=== PATIENT | female | born 1965 | race African-American/Black ===

== ENCOUNTER 2018-07-21 11:58 | Observation (INO) ==
[2018-07-21 12:27] LABS: Basophils # 0.1 10*3/uL (0.0-0.2); Basophils % 0.5 % (0.0-0.8); Eosinophils # 0.1 10*3/uL (0.0-0.87); Eosinophils % 0.6 % (0.00-10.9); Hematocrit 34.9 VOL% (35.7-47.0); Hemoglobin 11.5 GM/DL (12.0-16.0); Immature Granulocytes % 0.2 %; Immature Granulocytes Absolute 0.02 #; Lymphocytes # 3.1 10*3/uL (1.4-4.0); Lymphocytes % 31.8 % (21.3-54.2); Mean Corpuscular Volume 89.3 FL (87-102); Monocytes % 5.8 % (1.7-12.7); Neutrophils % 61.1 % (38.7-73.9); Platelet Count 290 T/CUMM (130-400); Red Blood Count 3.91 MC/CUMM (3.8-5.5); Red Cell Distribution Width 14.2 % (9.3-17.3); White Blood Count 9.6 T/CUMM (4-12)
[2018-07-21 12:52] LABS: Alanine Aminotransferase 22 U/L (13-56); Albumin 3.3 G/DL (3.4-5.0); Alkaline Phosphatase 117 U/L (45-117); Aspartate Amino Transferase 19 U/L (0-37); Blood Urea Nitrogen 14 MG/DL (7-18); Calcium 9.3 MG/DL (8.5-10.1); Glucose 246 MG/DL (74-106); Osmolality,Calculated 283.7 MOS/KG (273-304); Total Protein 8.3 G/DL (6.4-8.3); Troponin I < 0.015 NG/ML (0.00-0.045)
[2018-07-21 12:59] LABS: Apearance,Urine CLEAR (Clear); Bacteria,Urine Occasional /HPF (Few); Bilirubin,Urine Negative (Negative); Blood, Urine Negative (Negative); Glucose,Urine (UA) >=500 mg/dL (Negative); Ketones,Urine 5 mg/dL (Negative); Mucus,Urine Occasional /LPF (Occasional); Nitrite,Urine Negative (Negative); Protein,Urine Negative; RBC,Urine 3 /HPF (0-4); Squamous Epithelial Cell,Urine Occasional /HPF (0-10); Urine Color Yellow (Yellow); WBC,Urine 3 /HPF (0-6)
[2018-07-21] MEDS ORDERED: cloNIDine 0.1 MG TABLET PO STA (13:00)
[2018-07-21 13:01] LABS: Barbiturates Screen,Urine Negative (Negative); Benzodiazepines Screen,Urine Negative (Negative); Cannabinoid Screen,Urine Positive (Negative); Opiate Screen,Urine Negative (Negative); Phencyclidine Screen,Urine Negative (Negative)
[2018-07-21] MEDS ORDERED: cloNIDine 0.1 MG TABLET ONE (13:01)
[2018-07-21] MEDS ORDERED: SODIUM CHLORIDE 0.9% 1,000 ML IV STA (13:14)
[2018-07-21] MEDS ORDERED: ONDANSETRON 4 MG/2 ML VIAL IV PRN (15:05)
[2018-07-21] MEDS ORDERED: diphenhydrAMINE CAP 25 MG CAPSULE PO PRN (15:05)
[2018-07-21] MEDS ORDERED: guaiFENesin/DM ER 600-30 MG TABLET PO PRN (15:05)
[2018-07-21] MEDS ORDERED: ACETAMINOPHEN 325 MG TABLET PO PRN (15:05)
[2018-07-21] MEDS ORDERED: hydrALAZINE 20 MG/1 ML VIAL IV PRN (15:07)
[2018-07-21] MEDS ORDERED: DEXTROSE 50% 25 GM/50 ML VIAL IV PRN ×2 (15:17→19:49)
[2018-07-21] MEDS ORDERED: GLUCAGON 1 MG VIAL IM PRN ×2 (15:17→19:49)
[2018-07-21] MEDS ORDERED: MAGNESIUM SULF RIDER 4 GM in PREMIX 1 EACH IV PRN (15:22)
[2018-07-21] MEDS ORDERED: POTASSIUM CHLORIDE RIDER 10 MEQ in PREMIX 1 EACH IV PRN (15:22)
[2018-07-21] MEDS ORDERED: MAGNESIUM SULF RIDER 2 GM in PREMIX 1 EACH IV PRN (15:22)
[2018-07-21 16:32] LABS: Risk Ratio 5.33; Thyroid Stimulating Hormone 0.794 uIU/ml (0.358-3.74); VLDL CHOLESTEROL 20.8 MG/DL
[2018-07-21] MEDS ORDERED: DEXTROSE 50% 25 GM/50 ML SYRINGE IV PRN (20:07)
[2018-07-21] MEDS: INSULIN REGULAR 100 UNIT/ML SUBCUT SCH (22:56)
[2018-07-21] MEDS: LISINOPRIL 20 MG TABLET PO SCH (22:56)
[2018-07-21] MEDS: DOCUSATE SODIUM 100 MG CAPSULE PO SCH (22:57)
[2018-07-21] MEDS: CARVEDILOL 6.25 MG TABLET PO SCH (22:57)
[2018-07-21] MEDS: GABAPENTIN 100 MG CAPSULE PO SCH (22:57)
[2018-07-21] MEDS: HEPARIN 5,000 UNIT/1 ML VIAL SUBCUT SCH (22:58)
[2018-07-22] MEDS: SODIUM CHLOR 0.9% KCL 20 MEQ 20 MEQ/1,000 ML BAG IV SCH ×2 (01:25→16:45)
[2018-07-22 05:45] LABS: Basophils % 0.5 % (0.0-0.8); Eosinophils # 0.1 10*3/uL (0.0-0.87); Hematocrit 33.7 VOL% (35.7-47.0); Hemoglobin 10.9 GM/DL (12.0-16.0); Immature Granulocytes % 0.4 %; Immature Granulocytes Absolute 0.03 #; Lymphocytes # 3.2 10*3/uL (1.4-4.0); Mean Corpuscular HGB Conc 32.3 GM/DL (32-36); Mean Corpuscular Volume 89.4 FL (87-102); Mean Platelet Volume 10.2 FL (9.6-12.0); Monocytes % 6.5 % (1.7-12.7); Neutrophils % 52.6 % (38.7-73.9); Platelet Count 275 T/CUMM (130-400); Red Blood Count 3.77 MC/CUMM (3.8-5.5); Red Cell Distribution Width 14.2 % (9.3-17.3); White Blood Count 8.2 T/CUMM (4-12)
[2018-07-22 06:02] LABS: Albumin 2.8 G/DL (3.4-5.0); Bilirubin,Total 0.8 MG/DL (0.2-1.0); Calcium 9.1 MG/DL (8.5-10.1); Total Protein 7.4 G/DL (6.4-8.3)
[2018-07-22] MEDS ORDERED: ATORVASTATIN 40 MG TABLET PO SCH (09:00)
[2018-07-22] MEDS ORDERED: PANTOPRAZOLE 40 MG TABLET PO SCH (09:00)
[2018-07-22] MEDS: HEPARIN 5,000 UNIT/1 ML VIAL SUBCUT SCH ×3 (09:36→16:45)
[2018-07-22] MEDS: INSULIN REGULAR 100 UNIT/ML SUBCUT SCH ×5 (09:39→20:56)
[2018-07-22] MEDS: LISINOPRIL 20 MG TABLET PO SCH (09:44)
[2018-07-22] MEDS: GABAPENTIN 100 MG CAPSULE PO SCH ×2 (09:45→20:56)
[2018-07-22] MEDS: DOCUSATE SODIUM 100 MG CAPSULE PO SCH ×2 (09:45→20:56)
[2018-07-22] MEDS: CARVEDILOL 6.25 MG TABLET PO SCH ×2 (09:45→20:56)
[2018-07-22 10:05] LABS: Double Stranded DNA Antibodies < 25.0 IU/ML
[2018-07-22 18:58] LABS: Cyclic Citrull Peptide Interp Negative
[2018-07-22 20:02] LABS: HIV Antigen/Antibody Result Nonreactive (Nonreactive)
[2018-07-22 23:22] VITALS: BP 128/72
[2018-07-23] MEDS: HEPARIN 5,000 UNIT/1 ML VIAL SUBCUT SCH (00:59)
== END 2018-07-22 23:35 ==
LOC: EDUNIT# → EDBD → N.EDINP 11:58 → N.ED 11:58 → N.5E 17:30
PROVIDERS: ADMIT Internal Medicine; ATTEND Internal Medicine